=== PATIENT | female | born 1970 | race Hispanic/Latino ===

== ENCOUNTER 2024-04-11 08:43 | Day surgery (SDC) | payer BC ==
[2024-04-07 12:14] VITALS: BP 146/60; PULSE 73; RESP 16; TEMP 97.7
[2024-04-07 12:16] LABS: BASOPHILS # (AUTO) 0.03 K/uL (0.00-0.20); BASOPHILS % (AUTO) 0.5 % (0.0-5.0); EOSINOPHILS # (AUTO) 0.08 K/uL (0.00-0.70); EOSINOPHILS % (AUTO) 1.3 % (0.0-8.0); HEMATOCRIT 45.2 % (36-48); IMMATURE GRANULOCYTE ABSOLUTE 0.02 K/uL (0-1); LYMPHOCYTES # (AUTO) 2.3 K/uL (1.0-4.8); MEAN CORPUSCULAR HEMOGLOBIN 29.6 pg (27.0-33.0); MEAN CORPUSCULAR HGB CONC 32.5 g/dL (32.0-36.0); MEAN CORPUSCULAR VOLUME 90.9 fL (79-99); MONOCYTES # (AUTO) 0.4 K/uL (0.1-1.0); MONOCYTES % (AUTO) 5.6 % (3.0-13.0); NEUTROPHILS # (AUTO) 3.5 K/uL (1.8-7.7); NEUTROPHILS % (AUTO) 55.3 % (40.0-77.0); PLATELET COUNT (AUTO) 238 K/uL (130-400); RED BLOOD CELL COUNT(AUTO) 4.97 MIL/uL (4.00-5.50); RED CELL DISTRIBUTION WIDTH 13.2 % (11.0-15.5); WHITE BLOOD COUNT (AUTO) 6.3 K/uL (4.8-10.8)
[2024-04-07 12:23] LABS: CREATININE 0.7 mg/dL (0.5-1.0); POTASSIUM 3.9 mmol/L (3.5-5.1)
[2024-04-11] VITALS (14 sets, daily range): BP systolic 133–148; BP diastolic 62–79; PULSE 63–74; RESP 13–16; TEMP 97–97.6
[~2024-04-11] VITALS: Ht 154.9 cm; Wt 98.3 kg
[~2024-04-11 08:43] MED LIST: ATOR10 PO; EMPA10TA PO; ESCI-8 PO; LOSA50TA64 PO; PIOG15TA66 PO; SEMA1PEN3 SQ
[2024-04-11] MEDS: ceFAZolin SODIUM 2 GM VIAL ONE (09:24)
[2024-04-11] MEDS: 0.9%NACL 1000ML 1,000 ML IV ONE (09:24)
[2024-04-11] MEDS ORDERED: FAMOTIDINE 20MG VIAL IV ONE (09:41)
[2024-04-11] MEDS ORDERED: proPOFol 10 MG/ML 20ML VIAL IV ONE (09:45)
[2024-04-11] MEDS ORDERED: NEOSTIGMINE METHYLSULFATE 1MG/ML IV ONE (09:45)
[2024-04-11] MEDS ORDERED: GLYCOPYRROLATE 0.2 MG/ML 5 ML VIAL ONE ×2 (09:45→11:14)
[2024-04-11] MEDS ORDERED: LIDOCAINE PF 100MG/5ML (2%) SYRINGE 5ML ONE (09:45)
[2024-04-11] MEDS ORDERED: SUCCINYLCHOLINE CHLORIDE 20 MG/ML 10 ML VIAL ONE (09:45)
[2024-04-11] MEDS ORDERED: dexaMETHasone SOD PHOSPHATE 10MG/ML 1ML VIAL ONE (09:45)
[2024-04-11] MEDS ORDERED: ondanSETRON 4MG INJ ONE (09:45)
[2024-04-11] MEDS ORDERED: MIDAZOLAM HCL 1 MG/ML 2ML VIAL ONE (09:46)
[2024-04-11] MEDS ORDERED: rocuRONium bROMide 10MG/1ML 5ML VL ONE (09:46)
[2024-04-11] MEDS ORDERED: FENTanyl CITRate PF 50 MCG/1 ML 2ML VIAL ONE ×3 (09:46→11:42)
[2024-04-11] MEDS: INDOCYANINE GREEN 25 MG VIAL IJ ONE (10:25)
[2024-04-11] MEDS: BUPIvacaine/PF 0.25% 30ML VIAL IJ ONE (10:52)
[2024-04-11] MEDS ORDERED: TRAM-543 PO (12:46)
--- NOTE | 2024-04-11 12:51 | OP ---
Operative Note: DATE OF PROCEDURE: 04/11/24 SURGEON: TREVON FERRARA MD INSPECTOR SOLDERING: [facility] staff ANESTHESIA: General PREOPERATIVE DIAGNOSIS: Chronic cholecystitis POSTOPERATIVE DIAGNOSIS: Acute and chronic cholecystitis SYNOPSIS: Marked central obesity, large fatty liver, evidence of acute and chronic cholecystitis PROCEDURE: Laparoscopic cholecystectomy with ICG green ESTIMATED BLOOD LOSS: 30 mL INDICATIONS: 53-year-old female with symptoms of chronic cholecystitis. Im aging studies confirmed this diagnosis. A laparoscopic cholecystectomy was indicated. We had a discussion about the risks of the procedure including bleeding, infection, bile duct injury, bile leak and injury to surrounding viscera DESCRIPTION OF PROCEDURE: The patient was taken to the operating room and placed on the operating table in supine position. Next, general anesthesia was induced and they were intubated. Their abdomen was prepped and draped in a sterile fashion. Afterwards a timeout was called. The patient's identity, procedure, preoperative antibiotics and SCDs were all confirmed. I insufflated the abdomen with a Veress needle. Next, I entered the intra-abdominal cavity through a 12 mm epigastric incision using a 12 mm Optiview port with a 0 degree 10 mm scope. I placed a 3 additional ports in the following configuration: A 5 mm supraumbilical port and two 5 mm right subcostal ports. Next, I proceeded to remove the gallbladder. I used a harmonic scalpel to dissect the gallbladder off the liver bed fossa in a dome down fashion. I dissected down to the infundibulum. I skeletonized the cystic duct. I used ICG green to help confirm the cystic duct anatomy. The cystic artery was taken with the harmonic scalpel. I identified my critical my critical angle. I used PDS Endoloop to encircle the cystic duct. I transected the cystic duct with the harmonic scalpel and placed the specimen in an Endo Catch bag. The specimen was passed off. I inspected the gallbladder fossa. No active bleeding was seen. I closed the correction the pneumoperitoneum was evacuated. The skin incisions were closed with 4-0 Monocryl. 0.25% percent Marcaine with epinephrine was injected into the incision sites. Dermabond was applied. The sponge needle instrument counts were accurate. The patient was extubated and taken to recovery room in stable condition. TREVON FERARRA MD Apr 11, 2024 12:51
--- NOTE | 2024-04-11 13:51 | NUR ---
Full and complete discharge instructions given to Patient and family. Voiced understanding of Surgical procedure and follow up expectations/Diet. All questions answered. PIV removed with catheter tip intact. W/C to POV with Family.
== END 2024-04-11 13:56 | disposition home or self-care (01) ==
LOC: DAH 08:43
PROVIDERS: ATTEND Surgery
DX: K80.12 Calculus of gallbladder with acute and chronic cholecystitis without obstruction (principal); I10 Essential (primary) hypertension; E11.9 Type 2 diabetes mellitus without complications; E66.9 Obesity, unspecified; F41.9 Anxiety disorder, unspecified; Z68.41 Body mass index [BMI] 40.0-44.9, adult; Z79.899 Other long term (current) drug therapy
CPT/HCPCS: 80048; 84703; 85025; 36415; 47563; 82948; 81025; 88304; A6260; A4663; J7030 ×2; A4215 ×2; J3490 ×4; J3010 ×3; J1100; J0330; J0665; J2003; J2250; J2704; J2405; J2710; J0690; A4649; A4213; A4222; A4221; A4216 ×2; A4223 ×2; A4600